=== PATIENT | male | born 1975 | race Caucasian/White ===

== ENCOUNTER 2018-08-11 13:32 | Inpatient (IN) ==
[2018-08-11] MEDS ORDERED: ONDANSETRON INJ 2 MG/ML 2 ML VIAL IV STA ×2 (13:49→15:35)
[2018-08-11] MEDS ORDERED: SODIUM CHLORIDE 0.9% 1000ML 1,000 ML IV SCH (14:00)
[2018-08-11 14:02] LABS: Basophils # (auto) 0.01 K/uL (0-0.2); Basophils % (auto) 0.1 %; Eosinophils # (auto) 0.01 K/uL (0-0.5); Eosinophils % (auto) 0.1 %; Hematocrit (blood only) 45.8 % (42-52); Immature Granulocytes # (auto) 0.04 K/uL (0.00-0.02); Immature Granulocytes % (auto) 0.3 %; Lymphocytes # (auto) 1.41 K/uL (1.2-3.4); Lymphocytes % (auto) 9.4 %; Mean Corpuscular Hgb Conc 34.9 g/dL (32-36); Mean Corpuscular Volume 86.6 fL (80-100); Mean Platelet Volume 9.7 fL (7.4-10.4); Monocytes # (auto) 0.87 K/uL (0.11-0.59); Monocytes % (auto) 5.8 %; Neutrophils # (auto) 12.73 K/uL (1.4-6.5); Neutrophils % (auto) 84.3 %; Platelet Count 263 K/uL (130-400); RDW Coefficient of Variation 13.3 % (11.5-14.5); RDW Standard Deviation 41.9 fL (36.4-46.3); Red Blood Count 5.29 M/uL (4.7-6.1); White Blood Count 15.07 K/uL (4.8-10.8)
[2018-08-11 14:19] LABS: Alanine Aminotransferase 285 U/L (12-78); Aspartate Aminotransferase 276 U/L (15-37); BUN Creatinine Ratio 8.7 (10-20); Blood Urea Nitrogen 7 mg/dl (7-18); Calcium 9.6 mg/dl (8.5-10.1); Carbon Dioxide 22 mmol/L (21-32); Chloride 108 mmol/L (98-107); Creatinine Clr Calc Pharmacy 108.7 ml/min; Est GFR (African American) 123.2; Est GFR (Non-African American) 106.3; Glucose 175 mg/dl (70-99); INR 1.2 (0.9-1.1); Magnesium 2.2 mg/dl (1.8-2.4); Potassium 3.6 mmol/L (3.5-5.1); Prothrombin Time 12.1 Seconds (9.0-12.0); Sodium 136 mmol/L (136-145)
[2018-08-11 14:24] LABS: Albumin Globulin Ratio 1.2 (0.9-2); Alkaline Phosphatase 66 U/L (45-117); Bilirubin,Total 1.1 mg/dl (0.2-1); Creatine Kinase 92 U/L (39-308); Globulin 3.4 gm/dl (2.5-4.0); Total Protein 7.4 gm/dl (6.4-8.2); Troponin I < 0.015 ng/ml (0-0.045)
--- NOTE | 2018-08-11 14:26 | XRay Report ---
XR chest 1V portable CLINICAL HISTORY: OD dyspnea COMPARISON STUDY: 05/31/2015 FINDINGS: The bones soft tissues and hemidiaphragms are normal. The cardiomediastinal silhouette is n ormal. The lungs are clear. The pulmonary vasculature is normal. IMPRESSION: Negative chest. The above report was generated using voice recognition software. It may contain grammatical, syntax or spelling errors. Electronically signed by: Johnathan Earl M.D. 08/11/2018 2:25 PM
[2018-08-11 14:32] LABS: Acetaminophen 27 ug/ml (10-30); Salicylate < 1.7 mg/dl (2.8-20)
[2018-08-11] MEDS ORDERED: AcetylCYSTEINE IV 21 HR REGIMEN (>40KG) IV STA (14:48)
[2018-08-11] MEDS ORDERED: AcetylCYSTEINE 12,300 MG in DEXTROSE 5% 200 ML IV ONE (14:48)
[2018-08-11] MEDS ORDERED: AcetylCYSTEINE 4,100 MG in DEXTROSE 5% 500 ML IV ONE (15:49)
--- NOTE | 2018-08-11 15:56 | History & Physical Report ---
Date of Service August 11, 2018 Assessment & Plan (1) Tylenol overdose: (2) Abnormal LFTs (liver function tests): This is a 43-year-old male with a PMH of schizoaffective disorder bipolar type, borderline personality disorder, hyperlipidemia and DM II and other medical problems listed below who presents after intentional overdose with Tylenol last evening at 2030. -Reportedly ingested 200 Acetaminophen 500mg tabs at 2030 last evening -Tylenol level of 27 after 17 hours, tox screen negative otherwise -Lab work performed at 1100 and again at 1347 with the following results: Tbili trending up from 0.8 to 1.1, AST from 190 to 276, ALT from 195 to 285 -Acetadote started in ED. Plan to continue on the floor, per poison control instructions -Plan to recheck CMP and PT/INR around 2030 to determine if additional Acetadote is to be given -Monitor on telemetry, clears as tolerated (3) Nausea & vomiting: Zofran as needed, monitor electrolytes (4) Schizoaffective disorder, bipolar type: Checking lithium level. Kidney function intact. Okay to continue evening lithium dose if level is normal, per poison control -Holding guanfacene for now (5) Diabetes mellitus, type II: Last a1c of 6.4 earlier this month -Not on any oral medications -Monitor BSG and add SSI if indicated DVT Ppx: Teds Code status: FULL PCP: RADHA Fowler Dispo: Admit to telemetry. Discharge planning for return to [facility] when medically appropriate. Patient seen in collaboration with Dr. Hoover. Please see addendum. History of Present Illness Chief Complaint: Intentional overdose Primary Care Provider: RADHA Shingletownsilvano This is a 43-year-old male with a PMH of schizoaffective disorder bipolar type, borderline personality disorder, hyperlipidemia and DM II and other medical problems listed below who presents after intentional overdose with Tylenol last evening at 2030. Patient reportedly took 2 bottles of Tylenol (approximately 200 pills), mixed them with water and ingested them around 2030 last evening. States that it was a suicide attempt. Has history of suicide attempt in the past. Began to have hallucinations and felt dizzy last night, with nausea and repeated bouts of bilious emesis. Labs were reportedly performed at [facility] this morning and poison control was called, who recommended sending the patient to [facility] ED for further evaluation and treatment. Patient is endorsing nausea and has vomited once since her also with acid reflux and belching. Patient denies any fever or chills. No lightheadedness or headache. Denies chest pain, shortness of breath, abdominal pain, dysuria, diarrhea or constipation. No confusion per patient, but guards at bedside state that patient is altered at baseline due to significant mental health history. Called [facility] to clarify medication reconciliation, and patient is currently just on 3 meds: Boronda 600mg BID, Guanfacine 2mg daily and Invega Sustenna 234 Q4 weeks (last taken on 08/09/18). Presented to ED with hypertension of 159/100. Mild leukocytosis of 15 K, T bili initially 0.8 trending up to 1.1 on repeat lab work at 1345. AST elevated 276, ALT at 285. Patient was started on acetylcysteine protocol and also received Zofran and 1 L normal saline. Allergies Allergy/AdvReac Type Severity Reaction Status Date / Time No Known Allergies Allergy Unverified 08/11/18 15:57 Home Medications Home Medications Medication Instructions Recorded Confirmed Type guanfacine 2 mg PO HS 08/11/18 08/11/18 History lithium carbonate 600 mg PO BID 08/11/18 08/11/18 History paliperidone palmitate [Invega 234 mg IM Q4WK 08/11/18 08/11/18 History Sustenna] Past Med/Surg History Medical History Diabetes mellitus, type II (Chronic) Schizoaffective disorder, bipolar type (Chronic) Hyperlipidemia (Chronic) Surgical History No pertinent past surgical history (Chronic) Family History Other Family history unknown Social History Preferred Language: Syriac Beliefs That Will Affect Care: None marital status: Current Living Situation: Other Current Living Situation Comment: inmate current occupation: Prisoner Feels Safe at Home: Yes Smoking Status: Former smoker Hx Alcohol Use: No Hx Substance Use: Yes Last Used Substance: Unknown Review of Systems Review of Systems: At least ten systems reviewed and negative except as noted in the HPI. Physical Exam Physical Exam: General Appearance: WD/WN, no apparent distress, flattened affect, bilious emesis in bag beside patient Head: normocephalic, atraumatic Eyes: normal inspection, PERRL, EOMI ENT: hearing grossly normal, pharynx normal (moist mucous membranes) Neck: supple, no JVD, no adenopathy Respiratory/Chest: lungs clear to auscultation. No wheezes, rales or rhonci. No respiratory distress or accessory muscle use Cardiovascular: regular rate, rhythm, no murmur, normal peripheral pulses Abdomen/GI: normal bowel sounds, soft, non-tender to palpation Extremities/Musculoskelatal: normal inspection, no calf tenderness, normal capillary refill, no pedal edema Neurologic/Psych: alert, depressed mood/ flat affect, oriented x 3 Skin: normal color, warm/dry Results & Data Vital Signs (Past 12 Hours) Vital Signs Temp Pulse Pulse Resp BP BP Pulse Ox 08/11/18 15:21 86 16 163/99 H 99 08/11/18 13:51 98 08/11/18 13:45 37.1 C 78 16 156/100 H 97 Laboratory Results Short CBC 08/11/18 Range/Units 13:47 WBC 15.07 H (4.8-10.8) K/uL Hgb 16.0 (14.0-18.0) g/dL Hct 45.8 (42-52) % Plt Count 263 (130-400) K/uL BMP 08/11/18 13:47 Sodium 136 Potassium 3.6 Chloride 108 H Carbon Dioxide 22 BUN 7 Creatinine 0.83 Glucose 175 H Calcium 9.6 Cardiac Enzymes 08/11/18 Range/Units 13:47 Total Creatine Kinase 92 (39-308) U/L Troponin I < 0.015 (0-0.045) ng/ml Liver Function 08/11/18 Range/Units 13:47 Total Bilirubin 1.1 H (0.2-1) mg/dl AST 276 H (15-37) U/L ALT 285 H (12-78) U/L Alkaline Phosphatase 66 (45-117) U/L Albumin 4.0 (3.4-5.0) gm/dl Diagnostic Findings CXR: IMPRESSION: Negative chest. ECG Rhythm: normal sinus Findings: + nonspecific-ST abn Supervising Physician Co-Signing Physician Notes Attending addendum The patient was seen and examined in telemetry unit This is a 43-year-old male with a PMH of schizoaffective disorder bipolar type, borderline personality disorder, hyperlipidemia and DM II and other medical problems listed below with previous history of suicidal attempt presents to the ER after intentional overdose with Tylenol last evening at 2030. Complains to abdominal pain with nausea and vomiting during my examination Denies any other symptoms On examination Moderate distress at rest due to abdominal pain and nausea Hemodynamically stable Chest-clear to auscultate bilaterally Heart-S1-S2 regular, no murmur appreciated Abdomen-soft, mildly tender in the epigastrium, bowel sounds present Extremities-negative for any edema DATA ABSTRACTOR-alert, awake and oriented x3. No focal neuro deficit appreciated Admission labs and imaging studies noted Has Tylenol overdose and the case was discussed with poison center Has been getting N-acetylcysteine with monitoring liver function test Agree with assessment and plan as outlined above by MARIELA Ferreira Dr (1) Tylenol overdose Encounter type: initial encounter Injury intent: intentional self-harm Qualified Code(s): T39.1X2A - Poisoning by 4-Aminophenol derivatives, intentional self-harm, initial encounter (2) Nausea & vomiting Vomiting Intractability: unspecified Vomiting type: unspecified Qualified Code(s): R11.2 - Nausea with vomiting, unspecified
--- NOTE | 2018-08-11 16:09 | Emergency Department Note ---
Entered by Puja Carballo acting as a scribe for History of Present Illness General Chief complaint: Overdose (Intentional) Source: patient History of Present Illness Onset (ago): hour(s) (17.5) Location: abdomen Pain Consistency: + other (episode) Maximum Pain Intensity: 0 Quality: + other (overdose) Associated symptoms: + loss of appetite and + nausea/vomiting The patient is a 43 year old male who presents to the ED with complaints of an episode of an overdose occurring 17.5 hours ago. The patient states that he took two whole bottles of extra strength, 500 mg, Tylenol last night. He states that he crushed the pulls up in water and drank them. He states that afterwards he did vomit and has continued to do so since then. He notes that he hasnt been able to eat because of it. The patient states that this morning he got up and was unable to get out of bed. He states that he felt like he was going to , but hadnt yet. He notes that he didnt take his morning medications. He reports that they did labs at the [facility] that found that his liver function was off. The patient complains of feeling nauseous. Home Medications Home Medications Medication Instructions Recorded Confirmed Type guanfacine 2 mg PO HS 08/11/18 08/11/18 History lithium carbonate 600 mg PO BID 08/11/18 08/11/18 History paliperidone palmitate [Invega 234 mg IM Q4WK 08/11/18 08/11/18 History Sustenna] Allergies Allergy/AdvReac Type Severity Reaction Status Date / Time No Known Allergies Allergy Unverified 08/11/18 15:57 Past Med/Surg History Medical History Diabetes mellitus, type II (Chronic) Schizoaffective disorder, bipolar type (Chronic) Hyperlipidemia (Chronic) Surgical History No pertinent past surgical history (Chronic) Family History Other Family history unknown Social History Preferred Language: Faroese Beliefs That Will Affect Care: None marital status: Current Living Situation: Other Current Living Situation Comment: inmate current occupation: Prisoner Feels Safe at Home: Yes Smoking Status: Former smoker Hx Alcohol Use: No Hx Substance Use: Yes Last Used Substance: Unknown Review of Systems See HPI for pertinent positives & negatives. and A total of 10 systems reviewed and were otherwise negative Physical Exam Vital Signs Vital Signs - 24 hr 08/11/18 13:45 08/11/18 13:51 08/11/18 15:21 Temperature 37.1 C Temperature Source Oral Sepsis Recent Fever Within 48 Hours No Sepsis New/Unexplained Change in Mental Status No Sepsis Action Taken by Nursing No Action Required Pulse Rate 78 Pulse Rate [Apical] 86 Respiratory Rate 16 16 Blood Pressure 156/100 H Blood Pressure [Left Arm] 163/99 H Blood Pressure Mean 118 Blood Pressure Mean [Left Arm] 120 Pulse Oximetry 97 98 99 Oxygen Delivery Method Room Air Room Air Room Air GENERAL: Patient is awake, alert, and in no acute distress.Patient is resting comfortably and showing no signs of anxiety EYES: The conjunctivae are clear. The pupils are round and reactive. EARS, NOSE, MOUTH AND THROAT: The nose is without any evidence of any deformity. Mucous membranes are moist.Tongue is midline NECK: The neck is nontender and supple. RESPIRATORY: Normal respiratory effort is noted. There is no evidence of wheezing rhonchi or rales to auscultation. CARDIOVASCULAR: Regular rate and rhythm noted. There no murmurs rubs or gallops normal S1 normal S2 GASTROINTESTINAL: The abdomen is soft. Bowel sounds are present in all quadrants. Abdomen is nontender. MUSCULOSKELETAL/EXTREMITIES: There is no evidence of gross deformity. Full range of motion is noted in the hips and shoulders. SKIN: There is no obvious evidence of any rash. There are no petechiae, pallor or cyanosis noted. NEUROLOGIC: Patient is awake alert and oriented x3. PSYCH: Admits to overdose as a suicidal attempt. Course 1349: The patient was evaluated in room C8. A complete history and physical exam was performed. 1453: I reevaluated the patient and updated him on his test results. I discussed the treatment plan with him. He verbally agrees and understands. 1502: I discussed the patient's case with MARIELA Ferreira. She will evaluate the patient for further management. Consultations Consultation #1: I discussed the patient's case with MARIELA Ferreira. She will evaluate the patient for further management. Time: 15:02 Administered Medications Discontinued Medications Acetylcysteine (Acetadote Iv 21 Hour Regimen (>40kg)) 1 ea IV NOW STA; Protocol Stop: 08/11/18 14:49 Last Admin: 08/11/18 17:45 Dose: Not Given Documented by: [id number] Sodium Chloride (Nss 1000ml) 1,000 mls @ 999 mls/hr IV .Q1H1M RODRIGO Stop: 08/11/18 15:00 Last Infusion: 08/11/18 14:58 Dose: 0 mls/hr Documented by: [id number] Admin: 08/11/18 13:57 Dose: 999 mls/hr Documented by: [id number] Acetylcysteine 4,100 mg/ (Dextrose) 520.5 mls @ 125 mls/hr IV ONE ONE; Protocol Stop: 08/11/18 19:48 Last Admin: 08/11/18 16:53 Dose: 125 mls/hr Documented by: [id number] Acetylcysteine 12,300 mg/ (Dextrose) 261.5 mls @ 200 mls/hr IV ONE ONE; Protocol Stop: 08/11/18 15:47 Last Infusion: 08/11/18 16:35 Dose: 0 mls/hr Documented by: [id number] Admin: 08/11/18 15:12 Dose: 200 mls/hr Documented by: [id number] Ondansetron HCl (Zofran) 4 mg IV NOW STA Stop: 08/11/18 13:50 Last Admin: 08/11/18 13:57 Dose: 4 mg Documented by: [id number] Ondansetron HCl (Zofran) 4 mg IV NOW STA Stop: 08/11/18 15:36 Last Admin: 08/11/18 15:42 Dose: 4 mg Documented by: [id number] Medical Decision Making Differential Diagnosis Differential diagnosis: Etiologies such as toxicological process, infection, hypoglycemia, electrolyte abnormalities, cardiac sources, intracerebral event, neurologic process, as well as others were entertained. Medical Records Attestation: I reviewed the patient's medical records. Home Medications Current Medication List: was personally reviewed by me Laboratory Data Attestation: I reviewed the patient's lab results. Result diagrams: 08/11/18 13:47 08/11/18 13:47 Lab Results 08/11/18 08/11/18 08/11/18 Range/Units 13:47 13:47 13:47 WBC 15.07 H (4.8-10.8) K/uL RBC 5.29 (4.7-6.1) M/uL Hgb 16.0 (14.0-18.0) g/dL Hct 45.8 (42-52) % MCV 86.6 (80-100) fL MCH 30.2 (25-34) pg MCHC 34.9 (32-36) g/dL RDW Std Deviation 41.9 (36.4-46.3) fL RDW Coeff of Lisha 13.3 (11.5-14.5) % Plt Count 263 (130-400) K/uL MPV 9.7 (7.4-10.4) fL Immature Gran % (Auto) 0.3 % Neut % (Auto) 84.3 % Lymph % (Auto) 9.4 % [place] % (Auto) 5.8 % Eos % (Auto) 0.1 % Baso % (Auto) 0.1 % Immature Gran # (Auto) 0.04 H (0.00-0.02) K/uL Neut # (Auto) 12.73 H (1.4-6.5) K/uL Lymph # (Auto) 1.41 (1.2-3.4) K/uL [place] # (Auto) 0.87 H (0.11-0.59) K/uL Eos # (Auto) 0.01 (0-0.5) K/uL Baso # (Auto) 0.01 (0-0.2) K/uL PT 12.1 H (9.0-12.0) Seconds INR 1.2 H (0.9-1.1) Sodium 136 (136-145) mmol/L Potassium 3.6 (3.5-5.1) mmol/L Chloride 108 H (98-107) mmol/L Carbon Dioxide 22 (21-32) mmol/L Anion Gap 6.0 (3-11) BUN 7 (7-18) mg/dl Creatinine 0.83 (0.6-1.4) mg/dl Est Cr Clr Drug Dosing 108.7 ml/min Est GFR ( Amer) 123.2 Est GFR (Non-Af Amer) 106.3 BUN/Creatinine Ratio 8.7 L (10-20) Glucose 175 H (70-99) mg/dl Calcium 9.6 (8.5-10.1) mg/dl Magnesium 2.2 (1.8-2.4) mg/dl Total Bilirubin 1.1 H (0.2-1) mg/dl AST 276 H (15-37) U/L ALT 285 H (12-78) U/L Alkaline Phosphatase 66 (45-117) U/L Total Creatine Kinase 92 (39-308) U/L Troponin I < 0.015 (0-0.045) ng/ml Total Protein 7.4 (6.4-8.2) gm/dl Albumin 4.0 (3.4-5.0) gm/dl Globulin 3.4 (2.5-4.0) gm/dl Albumin/Globulin Ratio 1.2 (0.9-2) Lipase 89 (73-393) U/L Urine Color Urine Appearance (Clear) Urine pH (4.5-7.5) Ur Specific [place] (1.000-1.030) Urine Protein (Negative) Urine Glucose (UA) (Negative) Urine Ketones (Negative) Urine Blood (Negative) Urine Nitrite (Negative) Urine Bilirubin (Negative) Urine Urobilinogen (Negative) Ur Leukocyte Esterase (Negative) Urine WBC (Auto) (0-5) /hpf Urine RBC (Auto) (0-4) /hpf U Hyaline Cast (Auto) (0-5) /lpf U Epithel Cells (Auto) (0-5) /lpf Urine Bacteria (Auto) (Negative) Salicylates (2.8-20) mg/dl Urine Opiates Screen (Neg) Ur Methadone, Qual (Neg) Acetaminophen (10-30) ug/ml Urine Barbiturates (Neg) Ur Phencyclidine (PCP) (Neg) U Amphetamin/Meth Scrn (Neg) MDMA (Ecstasy) Screen (Neg) U Benzodiazepines Scrn (Neg) Ur Cocaine Metabolite (Neg) U Marijuana (THC) Screen (Neg) Ethyl Alcohol mg/dL (0-3) mg/dl 08/11/18 08/11/18 08/11/18 Range/Units 13:47 14:07 15:25 WBC (4.8-10.8) K/uL RBC (4.7-6.1) M/uL Hgb (14.0-18.0) g/dL Hct (42-52) % MCV (80-100) fL MCH (25-34) pg MCHC (32-36) g/dL RDW Std Deviation (36.4-46.3) fL RDW Coeff of Lisha (11.5-14.5) % Plt Count (130-400) K/uL MPV (7.4-10.4) fL Immature Gran % (Auto) % Neut % (Auto) % Lymph % (Auto) % [place] % (Auto) % Eos % (Auto) % Baso % (Auto) % Immature Gran # (Auto) (0.00-0.02) K/uL Neut # (Auto) (1.4-6.5) K/uL Lymph # (Auto) (1.2-3.4) K/uL [place] # (Auto) (0.11-0.59) K/uL Eos # (Auto) (0-0.5) K/uL Baso # (Auto) (0-0.2) K/uL PT (9.0-12.0) Seconds INR (0.9-1.1) Sodium (136-145) mmol/L Potassium (3.5-5.1) mmol/L Chloride (98-107) mmol/L Carbon Dioxide (21-32) mmol/L Anion Gap (3-11) BUN (7-18) mg/dl Creatinine (0.6-1.4) mg/dl Est Cr Clr Drug Dosing ml/min Est GFR ( Amer) Est GFR (Non-Af Amer) BUN/Creatinine Ratio (10-20) Glucose (70-99) mg/dl Calcium (8.5-10.1) mg/dl Magnesium (1.8-2.4) mg/dl Total Bilirubin (0.2-1) mg/dl AST (15-37) U/L ALT (12-78) U/L Alkaline Phosphatase (45-117) U/L Total Creatine Kinase (39-308) U/L Troponin I (0-0.045) ng/ml Total Protein (6.4-8.2) gm/dl Albumin (3.4-5.0) gm/dl Globulin (2.5-4.0) gm/dl Albumin/Globulin Ratio (0.9-2) Lipase (73-393) U/L Urine Color Urine Appearance (Clear) Urine pH (4.5-7.5) Ur Specific [place] (1.000-1.030) Urine Protein (Negative) Urine Glucose (UA) (Negative) Urine Ketones (Negative) Urine Blood (Negative) Urine Nitrite (Negative) Urine Bilirubin (Negative) Urine Urobilinogen (Negative) Ur Leukocyte Esterase (Negative) Urine WBC (Auto) (0-5) /hpf Urine RBC (Auto) (0-4) /hpf U Hyaline Cast (Auto) (0-5) /lpf U Epithel Cells (Auto) (0-5) /lpf Urine Bacteria (Auto) (Negative) Salicylates < 1.7 L (2.8-20) mg/dl Urine Opiates Screen Neg (Neg) Ur Methadone, Qual Neg (Neg) Acetaminophen 27 (10-30) ug/ml Urine Barbiturates Neg (Neg) Ur Phencyclidine (PCP) Neg (Neg) U Amphetamin/Meth Scrn Neg (Neg) MDMA (Ecstasy) Screen Neg (Neg) U Benzodiazepines Scrn Neg (Neg) Ur Cocaine Metabolite Neg (Neg) U Marijuana (THC) Screen Neg (Neg) Ethyl Alcohol mg/dL < 3.0 (0-3) mg/dl 08/11/18 Range/Units 15:25 WBC (4.8-10.8) K/uL RBC (4.7-6.1) M/uL Hgb (14.0-18.0) g/dL Hct (42-52) % MCV (80-100) fL MCH (25-34) pg MCHC (32-36) g/dL RDW Std Deviation (36.4-46.3) fL RDW Coeff of Lisha (11.5-14.5) % Plt Count (130-400) K/uL MPV (7.4-10.4) fL Immature Gran % (Auto) % Neut % (Auto) % Lymph % (Auto) % [place] % (Auto) % Eos % (Auto) % Baso % (Auto) % Immature Gran # (Auto) (0.00-0.02) K/uL Neut # (Auto) (1.4-6.5) K/uL Lymph # (Auto) (1.2-3.4) K/uL [place] # (Auto) (0.11-0.59) K/uL Eos # (Auto) (0-0.5) K/uL Baso # (Auto) (0-0.2) K/uL PT (9.0-12.0) Seconds INR (0.9-1.1) Sodium (136-145) mmol/L Potassium (3.5-5.1) mmol/L Chloride (98-107) mmol/L Carbon Dioxide (21-32) mmol/L Anion Gap (3-11) BUN (7-18) mg/dl Creatinine (0.6-1.4) mg/dl Est Cr Clr Drug Dosing ml/min Est GFR ( Amer) Est GFR (Non-Af Amer) BUN/Creatinine Ratio (10-20) Glucose (70-99) mg/dl Calcium (8.5-10.1) mg/dl Magnesium (1.8-2.4) mg/dl Total Bilirubin (0.2-1) mg/dl AST (15-37) U/L ALT (12-78) U/L Alkaline Phosphatase (45-117) U/L Total Creatine Kinase (39-308) U/L Troponin I (0-0.045) ng/ml Total Protein (6.4-8.2) gm/dl Albumin (3.4-5.0) gm/dl Globulin (2.5-4.0) gm/dl Albumin/Globulin Ratio (0.9-2) Lipase (73-393) U/L Urine Color [place] Urine Appearance Clear (Clear) Urine pH 5.0 (4.5-7.5) Ur Specific [place] > 1.045 H (1.000-1.030) Urine Protein Negative (Negative) Urine Glucose (UA) 1+ H (Negative) Urine Ketones Negative (Negative) Urine Blood Negative (Negative) Urine Nitrite Positive A (Negative) Urine Bilirubin Negative (Negative) Urine Urobilinogen Negative (Negative) Ur Leukocyte Esterase Negative (Negative) Urine WBC (Auto) 1-5 (0-5) /hpf Urine RBC (Auto) 0-4 (0-4) /hpf U Hyaline Cast (Auto) 1-5 (0-5) /lpf U Epithel Cells (Auto) 5-10 H (0-5) /lpf Urine Bacteria (Auto) Negative (Negative) Salicylates (2.8-20) mg/dl Urine Opiates Screen (Neg) Ur Methadone, Qual (Neg) Acetaminophen (10-30) ug/ml Urine Barbiturates (Neg) Ur Phencyclidine (PCP) (Neg) U Amphetamin/Meth Scrn (Neg) MDMA (Ecstasy) Screen (Neg) U Benzodiazepines Scrn (Neg) Ur Cocaine Metabolite (Neg) U Marijuana (THC) Screen (Neg) Ethyl Alcohol mg/dL (0-3) mg/dl Imaging Data Radiologist's Impression: Radiology results as stated below per my review and the radiologist's interpretation: XR chest 1V portable CLINICAL HISTORY: OD dyspnea COMPARISON STUDY: 05/31/2015 FINDINGS: The bones soft tissues and hemidiaphragms are normal. The cardiomediastinal silhouette is normal. The lungs are clear. The pulmonary vasculature is normal. IMPRESSION: Negative chest. The above report was generated using voice recognition software. It may contain grammatical, syntax or spelling errors. Electronically signed by: Johnathan Earl M.D. 08/11/2018 2:25 PM ECG Data Attestation: I personally reviewed and interpreted this ECG as follows: Indication: toxicologic Rate (beats per minute): 73 Rhythm: normal sinus Findings: no PAC, no PVC, no ST depression, no ST elevation and no ectopy Blood Pressure Blood Pressure Findings: Elevated blood pressure Blood Pressure Disposition: further management by hospitalist MDM Narrative The patient is a 43-year-old male who presented to the emergency department for an evaluation after having an overdose. The patient was experiencing nausea and vomiting. He admitted that he took an overdose of Tylenol last evening at approximately 8:30 PM as a suicidal gesture. I discussed the patient's laboratory and radiographic studies with him. He was found to have elevated liver function studies at outpatient laboratory results. For this reason he was sent to the emergency department. The poison control was consulted. The patient was started on N-acetylcysteine in the emergency department. He was treated with IV fluids and IV antiemetics. I discussed the patient's condition with the on-call [facility] hospitalist group. They have agreed to evaluate the patient in the emergency department for further management and disposition. Impression & Plan Tylenol overdose, Nausea & vomiting, Abnormal LFTs (liver function tests) Discharge Plan Visit Data *Final* Discharge Date/Time: 08/11/18 17:12 Chief Complaint: Overdose (Intentional) ED Provider: Rusty Payan Discharge Problem: Tylenol overdose, Nausea & vomiting, Abnormal LFTs (liver function tests) Patient Disposition: Admitted As Inpatient Discharge Instructions Interventions: ED Discharge Assessment Last Done: 08/11/18 17:12 Discharge Problem: Tylenol overdose Qualifiers: Encounter type: initial encounter Injury intent: intentional self-harm Qualified Code(s): T39.1X2A - Poisoning by 4-Aminophenol derivatives, intentional self-harm, initial encounter Nausea & vomiting Qualifiers: Vomiting type: unspecified Vomiting Intractability: unspecified Qualified Code(s): R11.2 - Nausea with vomiting, unspecified The scribe's documentation has been prepared under my direction and personally reviewed by me in its entirety. I confirm that the note above accurately refl ects all work, treatment, procedures, and medical decision making performed by me.
[2018-08-11 16:15] LABS: Appearance Urine Clear (Clear); Bacteria Urine Automated Negative (Negative); Blood Urine Negative (Negative); Color Urine Orange; Glucose Urine UA 1+ (Negative); Ketones Urine Negative (Negative); Leukocyte Esterase Urine Negative (Negative); Nitrite Urine Positive (Negative); Protein Urine Negative (Negative); RBC Urine Automated 0-4 /hpf (0-4); Specific Gravity Urine > 1.045 (1.000-1.030); Urobilinogen Urine Negative (Negative)
[2018-08-11 16:18] LABS: Bilirubin Urine Negative (Negative); Ictotest Urine Negative (Negative)
[2018-08-11 16:30] LABS: Amphetamines+Metham, Urine Neg (Neg); Barbiturates, Urine Neg (Neg); Benzodiazepine, Urine Neg (Neg); Cocaine, Urine Neg (Neg); MDMA (Ecstacy), Urine Neg (Neg); Methadone, Urine Neg (Neg); Opiate, Urine Neg (Neg); Phencyclidine, Urine Neg (Neg)
[2018-08-11] MEDS ORDERED: ONDANSETRON INJ 2 MG/ML 2 ML VIAL IV PRN (17:32)
[2018-08-11] MEDS ORDERED: [UNRECOGNIZED DRUG - REMARK] PRN (18:12)
[2018-08-11] MEDS ORDERED: PROMETHAZINE HCL 12.5 MG in SODIUM CHLORIDE 0.9% 50 ML IV PRN (18:49)
[2018-08-11] MEDS ORDERED: AcetylCYSTEINE 8,200 MG in DEXTROSE 5% 1,000 ML IV ONE (19:49)
[2018-08-11 20:40] LABS: INR 1.5 (0.9-1.1)
[2018-08-11 20:50] LABS: Albumin Level 3.5 gm/dl (3.4-5.0); BUN Creatinine Ratio 8.1 (10-20); Creatinine Clr Calc Pharmacy 98.1 ml/min; Est GFR (Non-African American) 100.1; Potassium 3.4 mmol/L (3.5-5.1)
[2018-08-11 20:53] LABS: Albumin Globulin Ratio 1.1 (0.9-2); Bilirubin,Total 1.1 mg/dl (0.2-1); Globulin 3.1 gm/dl (2.5-4.0); Total Protein 6.6 gm/dl (6.4-8.2)
[2018-08-11] MEDS: LITHIUM CARBONATE 300 MG TAB PO SCH (21:31)
[2018-08-11] MEDS ORDERED: LACTATED RINGER'S 1,000 ML IV ONE (21:43)
[2018-08-11] MEDS ORDERED: POTASSIUM CHLORIDE 20 MEQ TABCR PO STA (21:44)
[2018-08-12 06:56] LABS: Basophils # (auto) 0.02 K/uL (0-0.2); Basophils % (auto) 0.1 %; Eosinophils % (auto) 0.7 %; Hematocrit (blood only) 42.6 % (42-52); Hemoglobin 15.2 g/dL (14.0-18.0); Immature Granulocytes # (auto) 0.03 K/uL (0.00-0.02); Immature Granulocytes % (auto) 0.2 %; Lymphocytes # (auto) 1.43 K/uL (1.2-3.4); Lymphocytes % (auto) 10.3 %; Mean Corpuscular Hgb Conc 35.7 g/dL (32-36); Mean Corpuscular Volume 85.7 fL (80-100); Mean Platelet Volume 9.7 fL (7.4-10.4); Monocytes # (auto) 0.57 K/uL (0.11-0.59); Monocytes % (auto) 4.1 %; Neutrophils # (auto) 11.67 K/uL (1.4-6.5); Neutrophils % (auto) 84.6 %; Platelet Count 264 K/uL (130-400); RDW Coefficient of Variation 13.5 % (11.5-14.5); RDW Standard Deviation 42.4 fL (36.4-46.3); Red Blood Count 4.97 M/uL (4.7-6.1); White Blood Count 13.82 K/uL (4.8-10.8)
[2018-08-12 07:09] LABS: INR 1.5 (0.9-1.1); Prothrombin Time 15.1 Seconds (9.0-12.0)
[2018-08-12 07:10] LABS: INR 1.5 (0.9-1.1); Prothrombin Time 15.3 Seconds (9.0-12.0)
[2018-08-12 07:30] LABS: Albumin Level 3.2 gm/dl (3.4-5.0); BUN Creatinine Ratio 7.4 (10-20); Calcium 8.6 mg/dl (8.5-10.1); Creatinine Clr Calc Pharmacy 155.6 ml/min; Est GFR (African American) 142.7; Est GFR (Non-African American) 123.1; Potassium 3.2 mmol/L (3.5-5.1)
[2018-08-12 07:36] LABS: Bilirubin,Total 1.1 mg/dl (0.2-1); Globulin 3.1 gm/dl (2.5-4.0); Total Protein 6.3 gm/dl (6.4-8.2)
[2018-08-12 07:41] LABS: Albumin Level 3.3 gm/dl (3.4-5.0); Bilirubin Direct 0.3 mg/dl (0-0.2); Bilirubin,Total 1.2 mg/dl (0.2-1); Total Protein 6.2 gm/dl (6.4-8.2)
[2018-08-12] MEDS: LITHIUM CARBONATE 300 MG TAB PO SCH ×2 (08:27→20:32)
[2018-08-12] MEDS ORDERED: POTASSIUM CHLORIDE 20 MEQ TABCR PO ONE (09:30)
[2018-08-12] MEDS ORDERED: AcetylCYSTEINE 8,200 MG in DEXTROSE 5% 1,000 ML IV SCH (11:30)
--- NOTE | 2018-08-12 12:12 | Hospitalist Progress Note ---
Date of Service August 12, 2018 Assessment & Plan (1) Intentional acetaminophen overdose: (2) Suicidal overdose: [place] [facility] [place] [facility] after pt intentionally ingested 200 tabs of acetaminophen 500mg Pt said that he wanted to kill himself Tylenol 27 wnl Continue suicide precaution (already had 2 [place] [facility] guards at bedside) Consider Psych consult Case discussed with poison control that recommended to continue another maintenance dose of N-Acetylcysteine for 16hrs with the same dose once the previous bag finishes. Continue monitor closely (3) Abnormal LFTs (liver function tests): Ingested 200 tabs of tylenol Liver enzymes on admission AST 190 and ALT 195 Liver enzymes has been trending high AST 190->276->442->938, then ALT 195->285-> 488->1139 PT 15.3 and INR 1.5 Received loading dose of N-Acetylcysteine, then 4hr maintenance dose, then 16 hr maintenance dose Case discussed with poison control and recommended to give an additional 16hr maintenance N-acetylcysteine Will check LFT, PT/INR after 12hrs once the 16hrs maintenance dose starts . Continue monitor closely (4) Nausea & vomiting: Zofran as needed, monitor electrolytes Stable (5) Schizoaffective disorder, bipolar type: [place] level low Continue holding guanfacene for now (6) Diabetes mellitus, type II: Last a1c of 6.4 earlier this month Not on any oral medications Continue monitor BS DVT Ppx: Teds Code status: FULL PCP: RADHA [facility] Dispo: Continue monitor in tele Subjective Pt was seen and examined Lying in bed with no distress with 2 securities guard at bedside Pt said that he feels fine He said that he feels fine, but very hungry All he is worried about is when he can have some food to eat Denies any chest pain, palpitation, dizziness, nausea, vomiting and abdominal pain Physical Exam Physical Exam: General- No acute distress Head- atraumatic Eyes- PERRL, EOMI, ENT- oropharynx clear Neck- supple, no JVD Lungs- clear to auscultation Heart- regular rhythm; no murmur Abdomen- normal bowel sounds, soft, nontender Extremities- no calf tenderness Neuro- alert, oriented x 3; PERRL, EOMI; no facial palsy; no dysarthria Skin- warm & dry Results & Data Vital Signs (Past 12 Hours) Vital Signs Temp Pulse Resp BP Pulse Ox 08/12/18 11:03 37.1 C 90 18 107/62 97 08/12/18 07:05 36.9 C 84 18 115/78 98 08/12/18 03:16 36.9 C 86 18 109/66 96 (1) Nausea & vomiting Vomiting Intractability: unspecified Vomiting type: unspecified Qualified Code(s): R11.2 - Nausea with vomiting, unspecified
[2018-08-13 02:57] LABS: INR 1.7 (0.9-1.1); Prothrombin Time 17.2 Seconds (9.0-12.0)
[2018-08-13 03:05] LABS: BUN Creatinine Ratio 6.4 (10-20); Calcium 8.5 mg/dl (8.5-10.1); Creatinine Clr Calc Pharmacy 145.6 ml/min; Est GFR (African American) 138.9; Est GFR (Non-African American) 119.8; Potassium 3.5 mmol/L (3.5-5.1)
[2018-08-13 03:30] LABS: Bilirubin,Total 0.9 mg/dl (0.2-1)
[2018-08-13] MEDS ORDERED: LACTATED RINGER'S 1,000 ML IV ONE ×2 (04:14→21:26)
[2018-08-13] MEDS ORDERED: AcetylCYSTEINE 8,200 MG in DEXTROSE 5% 1,000 ML IV SCH (06:00)
[2018-08-13] MEDS: LITHIUM CARBONATE 300 MG TAB PO SCH ×2 (07:45→21:13)
--- NOTE | 2018-08-13 11:13 | Psychiatric Consultation ---
Date of Consultation August 13, 2018 Impression / Recommendations Impression The patient is a 43yo white male with h/o schizoaffective disorder bipolar type and anxiety and other disruptive behavioral disorder by history (r/o ADHD, CD) from [facility] (10+ years served, >9 until elligible for parole) who shares that he is depressed, and anxious and "tired of living in custodial" who is s/p suicide attempt that was premeditated for weeks. He waited >17hours to relay any distress and when he had protracted nausea and vomitting he disclosed the toxic ingestion prompting medical admission. Prognosis of his liver remains uncertain at this time per medical service. (1) Suicidal overdose: 1. Safety - seriously high acute and chronic risk agree with one to one at the bedside , guards can fulfill here, and when return to custodial on suicide watch - will attempt to treat his current depression and anxiety to mitigate risk - Future consideration: overtime when back at custodial considering more aggressive treatment of attention, eg. strattera to help him then engage in activities of distraction or even begin to work on a personal goal may be largely helpful toward finding meaning and purpose despite being in custodial, or if not already tried cautious trial of wellbutrin (2) Schizoaffective disorder, bipolar type: - INvega sustenna administered on or around 08/10/18, continue in 4 weeks - continue lithium at usual dose - FOr now will remain cautious and use buspar to target anxiety until we get further collateral history - will attempt to get collateral history from the custodial to look at prior trials and reactions as well (contemplating very cautious use of celexa low dose 10mg (max in liver failure is 20mg), risk is activation to elevated/mixed state, but if this lowers his anxious distress, rumination and improves his mood it may be worth considering this or other SSRI. I do believe invega would stablize better than latuda) (I would be interested in knowing if he has been on wellbutrin in the past alongside an SSRI to target mood and attention, but risk is anxiety and mood elevation) - stop guanfacine as he has not had benefit and questions if it has worsened his mood - if patient makes it through this experience targeting activities he can do in custodial to find broader meaning and purpose, e.g. a cause to champion, even if it is letter writing. I do not know what this would be, but treating his concentration/restlessness would be very helpful in then helping him engage in tasks that require sustained mental effort Risk Factors Assessment Male: Yes : Yes Do You Have Access To A Gun?: No Health Problems: Yes Mental Health Diagnoses: Yes Substance Use Disorders: No Previous Attempt: Yes Previous Attempt; Highly Lethal: Yes Previous Attempt; Planned: Yes Previous Attempt; Didn't Tell Anyone: Yes Previous Psychiatric Hospitalization: Yes (on mental health unit at custodial) Hopelessness: Yes Protective Factors Assessment Mormonism Beliefs: No : No Responsible for Young Children: No Employed: No Stable Relationships: No Supportive Family: Yes (mother in [place] talks daily) Good Rapport with Provider: No CPT Code 89123 Psych History Chief Complaint "I just don't want to live in half-way anymore". History of Present Illness This is a 43-year-old male with a PMH of schizoaffective disorder bipolar type, borderline personality disorder, hyperlipidemia and DM II who presented to the [facility] ER on 08/11/18 approximately 17hours after an intentional overdose with Tylenol the evening evening of 08/10/18 at 2030. Patient reports to this provider that he stockpiled acetominophen over 3 weeks [facility]. He reportedly took 2 bottles of Tylenol (approximately 200 pills), mixed them with water and ingested them. He stated it was an intentional overdose with intention to . He reports he has been feeling depressed for several months. Specifically he reports today that he has been in custodial for over a decade and has nearly another decade before he can go up for parole, "and I will be denied anyway....they won't give it to me....and I am locked in there and there is so much going on in the world and I can't do anything to even help." He reports low mood, poor interest, poor appetite, feeling hopeless, helpless and worthless. He notes he has had the suicidal ideations for many weeks. He reports he has longstanding poor concentration (even as far back as elementary school) "they just left me alone in school because they did not know what to do with me...I passed, never did homework, but did take the tests" Noted he completed HS, "I never would have made it in college." He reports in the day he feels too restless and poor focus to watch TV or read more than a few pages. He mainly passes his time by listening to music. He states he was recently placed on guanfacine "maybe in April" and asks if that can worsen depression. He wa s noted to say to the nursing staff yesterday, "I just don't want to live." Today when asked about how he feels that he is still alive he states, "well if I live I am not going to try to kill myself again because I can never seem to get it right, and God must not want me ." He is presently uncertain of the prognosis for his liver. He does not say he actively wishes to and engages in discussion about options for treatment saying "well if I am going to be alive we should try something." He reports h/o "schizophrenia the positive type and bipolar the second type." He describes a history of thought confusion "but not the hallucinations" denying AVH, or delusions. He reports he has been paranoid in the past, but denies IOR, TI/TB in the past. When specifically asked he beleives that he has been unable to function because of psychotic symptoms such as limited self care "I stop showering and eating and taking care of myself and then can't be around others ." He is uncertain if he has had catatonia even when asked about symptoms in layman's terms. He states that he receives Invega Sustenna injections and just had it 1-2 days prior to medical admission, "It helps my sym ptoms" he deniesf eeling restless or stiff, denies side effects. He also feels his lithium is helpful and again denies side effects He does report of history of "crazy manias....dancing on a table naked, talking, feeling great, yes, on top of the world, more energy, poor sleep" with indiscretions sexually, and socially getting into altercations at times. He notes "then you crash hard and wake up on the pavement" with severe post-manic depressive phases. He reports last elevation was a few years ago when he was tried on latuda, he was also on celexa and so he was taken off those meds. At s ometime he was on abilify and states "that gave me diabetes." He reports he is an anxious person, "always have been....I worry." He reports feeling keyed up and on edge and lately ruminating anxiously over being in custodial, and the state of the world. He states he does not like the klonopin "I feel worse on it....but maybe I should ask to be put back on it." he notes he has been on many antidepressants before but "they are all worried I'll get manic" He notes he felt the prior use of celexa helped his anxiety. He has been on other SSRIs in the past but does not have a good recollection about them. The medical team called [facility] to clarify medication reconciliation, and patient is currently just on 3 meds: [place] 600mg BID, Guanfacine 2mg daily and Invega Sustenna 234 Q4 weeks (last taken on 08/09/18). Patient's liver enzymes continue to rise despite ongoing NAC and supportive care. IM team is consulting with poison control for ongoing assistance/guidance in treatment. Past Psychiatric History Previous Psych History: seen in the custodial for schizaffective disorder Bipolar type prior medications include but ar note limited to celexa, guanfacine, lithium invega, abilify, latuda (ineffective manic) this admission is his 3rd suicidal attempt , first in 5th grade, second 2016 attempted to hang himself in custodial Previously expiramented with drugs in his late teens, "got in trouble with the law at 16yo for that and stopped" Do You Have Access To A Gun?: No Allergies Allergy/AdvReac Type Severity Reaction Status Date / Time No Known Allergies Allergy Unverified 08/11/18 15:57 Home Medications Home Medications Medication Instructions Recorded Confirmed Type guanfacine 2 mg PO HS 08/11/18 08/11/18 History lithium carbonate 600 mg PO BID 08/11/18 08/11/18 History paliperidone palmitate [Invega 234 mg IM Q4WK 08/11/18 08/11/18 History Sustenna] Family History unknown Personal History Living Arrangements Comments: Retirement, [facility] on the mental health unit, has been in >10 years, not eligible for parole for nearly 9 more years Born In: [facility] Highest Grade Completed: High School Graduate Employment Status: Other (in custodial, history of "sales") Marital Status: Single Beliefs That Will Affect Care: None (has his own beleifs about spirituality that incorporate many ideologies ) History of Legal Problems: yes, not explicitly discussed Patient History Medical History Diabetes mellitus, type II (Chronic) Schizoaffective disorder, bipolar type (Chronic) Hyperlipidemia (Chronic) Surgical History No pertinent past surgical history (Chronic) Family History Other Family history unknown Social History Preferred Language: Mongolian Communication Ability: Effective Beliefs That Will Affect Care: None marital status: Current Living Situation: Other Current Living Situation Comment: inmate current occupation: Prisoner Feels Safe at Home: Yes Smoking Status: Former smoker Hx Alcohol Use: No Hx Substance Use: Yes Last Used Substance: Unknown Physical Exam Psychiatric: Orientation: alert, oriented x 3 and cooperative Apperance: appeared stated age (laying in hospital gown handcuffed to the bed, guards at the bedside) Eye Contact: good eye contact Motor Behavior: no abnormal motor movements (gait not appreciated); no psychomotor agitation, n EPS and n akathisia Speech: normal rate/rhythm/volume of speech Affect: + blunted af fect Mood: + depressed mood and + anxious mood Thought Process: goal directed thought process and clear/coherent thought process Thought Content: reality based without delusions and + hopelessness; not paranoid, no delusions, no ideas of reference, no thought insertion and no thought broadcasting Suicidal Thoughts: + reports suicidal thoughts (has SI wtih premeditated i ntention and plan for this attempt, ambivalent no) Homicidal Thoughts: denies homicidal thoughts and denies homicidal plan Hallucinations: no auditory hallucinations and no visual hallucinations Cognition: recent memory grossly intact Estimated Intelligence: average estimated intelligence Insight: + impaired insight Judgement: + impaired judgement Vital Signs (Past 24 Hours): Last Vital Signs Temp 37.5 C 08/13/18 07:47 Pulse 96 H 08/13/18 07:47 Resp 30 H 08/13/18 07:47 BP 119/77 08/13/18 07:47 Pulse Ox 93 08/13/18 03:50 Results & Data Medications Administered Promethazine HCl 12.5 mg/ (Sodium Chloride) 50.5 mls @ 202 mls/hr IV Q6H PRN PRN Reason: Nausea And Vomiting Stop: 09/10/18 18:48 Last Infusion: 08/11/18 21:34 Dose: 0 mls/hr Documented by: [id number] Admin: 08/11/18 20:45 Dose: 202 mls/hr Documented by: [id number] Lactated Ringer's (Lr) 1,000 mls @ 80 mls/hr IV .[id number] ONE Stop: 08/13/18 16:43 Last Admin: 08/13/18 05:34 Dose: 80 mls/hr Documented by: [id number] Acetylcysteine 8,200 mg/ (Dextrose) 1,041 mls @ 62.5 mls/hr IV TODAY@0600 [facility]; Protocol Stop: 08/13/18 22:40 Last Admin: 08/13/18 07:17 Dose: 62.5 mls/hr Documented by: [id number] [place] Carbonate ([place] Carbonate) 600 mg PO BID RODRIGO Stop: 09/10/18 20:59 Last Admin: 08/13/18 07:45 Dose: 600 mg Documented by: [id number] Admin: 08/12/18 20:32 Dose: 600 mg Documented by: [id number] Admin: 08/12/18 08:27 Dose: 600 mg Documented by: [id number] Admin: 08/11/18 21:31 Dose: 600 mg Documented by: [id number]
--- NOTE | 2018-08-13 14:47 | Hospitalist Progress Note ---
Date of Service August 13, 2018 Assessment & Plan (1) Intentional acetaminophen overdose: (2) Suicidal overdose: Was sent from [facility] after pt intentionally ingested 200 tabs of acetaminophen 500mg Pt said that he wanted to kill himself Tylenol 27 wnl on admssion Continue suicide precaution (already had 2 half-way guards at bedside) Consider Psych on board recommended to continue [place] and recommended to d/c guanfacine Pt is getting a 3rd bag of N-acetylcysteine that was starting this morning since AST and ALT continue to elevate Case discussed with poison control recommended if next liver panel (due at 7:30PM) continue to increase to give another back of 16hr of N-acetylcysteine with the current dose Poison control said that if enzymes is dropping no need to give additional N- acetylcysteine even if the level is in thousand Continue monitor liver enzymes Continue monitor closely (3) Abnormal LFTs (liver function tests): Ingested 200 tabs of tylenol Liver enzymes on admission AST 190 and ALT 195->4148 Liver enzymes has been trending high AST 190->276->442->938, then ALT 195->285-> 488->1139->6311 PT 17.2 and INR 1.7 Received loading dose of N-Acetylcysteine, then 4hr maintenance dose, then 16 hr maintenance dose Case discussed with poison control and recommended to give an additional 16hr maintenance N-acetylcysteine Will check LFT, PT/INR after 12hrs once the 3rd bag of the N-acetylcysteine 16hrs maintenance dose starts . Continue monitor closely (4) Nausea & vomiting: Zofran as needed, monitor electrolytes Tolerated diet Resolved (5) Schizoaffective disorder, bipolar type: [place] level low Psych recommended to d/c guanfacine on discharge Continue [place] Starting on Buspar 5mg TID (6) Diabetes mellitus, type II: Last a1c of 6.4 earlier this month Not on any oral medications Continue monitor BS DVT Ppx: Teds Code status: FULL PCP: RADHA [facility] Dispo: Continue monitor in tele Subjective Pt was seen and examined Lying in bed with no distress Pt said that he feels fine He said that that he does not have any abdominal symptoms and nausea Physical Exam Physical Exam: General- No acute distress Head- atraumatic Eyes- PERRL, EOMI, ENT- oropharynx clear Neck- supple, no JVD Lungs- clear to auscultation Heart- regular rhythm; no murmur Abdomen- normal bowel sounds, soft, nontender Extremities- no calf tenderness Neuro- alert, oriented x 3; PERRL, EOMI; no facial palsy; no dysarthria Skin- warm & dry Results & Data Vital Signs (Past 12 Hours) Vital Signs Temp Pulse Resp BP Pulse Ox 08/13/18 12:10 36.9 C 97 H 28 H 152/89 H 98 08/13/18 07:47 37.5 C 96 H 30 H 119/77 08/13/18 03:50 37 C 92 H 17 103/67 93 (1) Nausea & vomiting Vomiting Intractability: unspecified Vomiting type: unspecified Qualified Code(s): R11.2 - Nausea with vomiting, unspecified
[2018-08-13 19:59] LABS: INR 1.4 (0.9-1.1)
[2018-08-13 20:11] LABS: Albumin Level 2.8 gm/dl (3.4-5.0); BUN Creatinine Ratio 6.4 (10-20); Calcium 8.4 mg/dl (8.5-10.1); Creatinine Clr Calc Pharmacy 104.9 ml/min; Est GFR (African American) 121.4; Est GFR (Non-African American) 104.7; Potassium 3.8 mmol/L (3.5-5.1)
[2018-08-13 20:32] LABS: Albumin Globulin Ratio 0.9 (0.9-2); Bilirubin,Total 1.3 mg/dl (0.2-1); Globulin 3.2 gm/dl (2.5-4.0)
[2018-08-14 08:41] LABS: Albumin Level 2.8 gm/dl (3.4-5.0); BUN Creatinine Ratio 6.4 (10-20); Calcium 8.9 mg/dl (8.5-10.1); Creatinine Clr Calc Pharmacy 127.1 ml/min; Est GFR (African American) 131.3; Est GFR (Non-African American) 113.3; Potassium 3.5 mmol/L (3.5-5.1)
[2018-08-14 08:48] LABS: Albumin Globulin Ratio 0.9 (0.9-2); Bilirubin,Total 1.6 mg/dl (0.2-1); Total Protein 5.8 gm/dl (6.4-8.2)
[2018-08-14] MEDS: LITHIUM CARBONATE 300 MG TAB PO SCH ×2 (08:48→20:45)
--- NOTE | 2018-08-14 17:01 | Hospitalist Progress Note ---
Date of Service August 14, 2018 Assessment & Plan (1) Intentional acetaminophen overdose: (2) Suicidal overdose: Was sent from [facility] skilled nursing after pt intentionally ingested 200 tabs of acetaminophen 500mg Pt said that he wanted to kill himself Tylenol 27 wnl on admssion Continue suicide precaution (already had 2 skilled nursing guards at bedside) Psych on board recommended to continue [place] and recommended to d/c guanfacine Received a total of 3 bags (16hr maintenance dose ) of N-acetylcysteine Continue Buspar 5mg TID Need to be on suicide watch once discharge (3) Abnormal LFTs (liver function tests): Ingested 200 tabs of tylenol Liver enzymes on admission AST 190 and ALT 195->4148 Liver enzymes has been trending high AST 190->276->442->938, then ALT 195->285-> 488->1139->6311 Received loading dose of N-Acetylcysteine, then 4hr maintenance dose, then 3 bags of N-Acetylcysteine (16 hr maintenance dose) Liver enzymes trending down AST from 4148 to 386 and ALT from 6311 to 2989 Poison controlled recommended no additional bag of N-acetylcysteine since liver enzymes are trending down Continue monitor LFTs (4) Nausea & vomiting: Zofran as needed, monitor electrolytes Tolerated diet Resolved (5) Schizoaffective disorder, bipolar type: Suicide [place] level low Psych recommended to d/c guanfacine on discharge Continue [place] Continue Buspar 5mg TID Need to be on suicide watch once discharge (6) Diabetes mellitus, type II: Last a1c of 6.4 earlier this month Not on any oral medications Continue monitor BS DVT Ppx: Teds Code status: FULL PCP: RADHA [facility] Dispo: Will transfer to medical Possible discharge tomorrow Subjective Pt was seen and examined Lying in bed with no distress with 2 guards at bedside Pt said that he feels fine Denies any chest pain, palpitation, dizziness, N/V, SOB and abdominal pain Physical Exam Physical Exam: General- No acute distress Head- atraumatic Eyes- PERRL, EOMI, ENT- oropharynx clear Neck- supple, no JVD Lungs- clear to auscultation Heart- regular rhythm; no murmur Abdomen- normal bowel sounds, soft, nontender Extremities- no calf tenderness Neuro- alert, oriented x 3; PERRL, EOMI; no facial palsy; no dysarthria Skin- warm & dry Results & Data Vital Signs (Past 12 Hours) Vital Signs Temp Pulse Pulse Resp BP Pulse Ox 08/14/18 15:12 36.9 C 83 18 129/83 95 08/14/18 11:01 37.5 C 95 H 25 H 116/60 93 08/14/18 07:07 37.2 C 83 28 H 119/75 95 (1) Nausea & vomiting Vomiting Intractability: unspecified Vomiting type: unspecified Qualified Code(s): R11.2 - Nausea with vomiting, unspecified
[2018-08-15 06:55] LABS: Albumin Level 2.8 gm/dl (3.4-5.0); BUN Creatinine Ratio 8.8 (10-20); Calcium 8.3 mg/dl (8.5-10.1); Creatinine Clr Calc Pharmacy 161.2 ml/min; Est GFR (African American) 144.8; Est GFR (Non-African American) 124.9; Potassium 3.5 mmol/L (3.5-5.1)
[2018-08-15 07:03] LABS: Albumin Globulin Ratio 0.9 (0.9-2); Bilirubin,Total 0.8 mg/dl (0.2-1); Globulin 3.2 gm/dl (2.5-4.0)
[2018-08-15] MEDS: LITHIUM CARBONATE 300 MG TAB PO SCH (07:54)
--- NOTE | 2018-08-15 14:50 | Hospitalist Progress Note ---
Date of Service August 15, 2018 Assessment & Plan (1) Intentional acetaminophen overdose: (2) Suicidal overdose: Was sent from [facility] after pt intentionally ingested 200 tabs of acetaminophen 500mg Pt said that he wanted to kill himself Tylenol 27 (wnl) on admssion Continue suicide precaution (already had 2 halfway guards at bedside) Psych on board recommended to continue [place] and recommended to d/c guanfacine Received N-acetylcysteine loading dose, then 4hr maintenance dose then 3 bags (16hr maintenance dose ) of N-acetylcysteine Buspar 5mg TID started by psych Case discussed with psych and defer to the psych team at the [facility] for assisted management Need to be on suicide watch once discharge to [facility] (3) Abnormal LFTs (liver function tests): Ingested 200 tabs of tylenol Liver enzymes on admission AST 190 and ALT 195->4148 Liver enzymes has been trending high AST 190->276->442->938, then ALT 195->285-> 488->1139->6311 Received loading dose of N-Acetylcysteine, then 4hr maintenance dose, then 3 bags of N-Acetylcysteine (16 hr maintenance dose) Liver enzymes continue trending down AST from 4148 to 386--> 118 and ALT from 6311 to 2989-->2002 Poison controlled recommended no additional bag of N-acetylcysteine since liver enzymes are trending down Check Liver enzymes in 3 to 5 days, then weekly until stable Avoid any hepatotoxic agents (4) Nausea & vomiting: Zofran as needed, monitor electrolytes Tolerated diet Resolved (5) Schizoaffective disorder, bipolar type: Suicide [place] level low Psych recommended to d/c guanfacine on discharge Continue [place] and Invega Continue Buspar 5mg TID Need to be on suicide watch once discharge (6) Diabetes mellitus, type II: Last a1c of 6.4 earlier this month Not on any oral medications Continue monitor BS DVT Ppx: Teds Code status: FULL PCP: RADHA [facility] Dispo: Case discussed with Yony SIERRA at the [facility] Follow up with psych Monitor Liver enzymes Subjective Pt was seen and examined Lying in bed with no distress with guards at bedside Pt said that he feels fine He denies any abdominal pain, dizziness, palpitation and SOB Physical Exam Physical Exam: General- No acute distress Head- atraumatic Eyes- PERRL, EOMI, ENT- oropharynx clear Neck- supple, no JVD Lungs- clear to auscultation Heart- regular rhythm; no murmur Abdomen- normal bowel sounds, soft, nontender Extremities- no calf tenderness Neuro- alert, oriented x 3; PERRL, EOMI; no facial palsy; no dysarthria Skin- warm & dry Results & Data Vital Signs (Past 12 Hours) Vital Signs Temp Pulse Resp BP Pulse Ox 08/15/18 07:32 36.9 C 77 16 118/72 97 (1) Nausea & vomiting Vomiting Intractability: unspecified Vomiting type: unspecified Qualified Code(s): R11.2 - Nausea with vomiting, unspecified
--- NOTE | 2018-08-15 15:08 | Discharge Summary ---
Date of Service August 15, 2018 Admission HPI Per Admitting Provider This is a 43-year-old male with a PMH of schizoaffective disorder bipolar type, borderline personality disorder, hyperlipidemia and DM II who presented to the [facility] ER on 08/11/18 approximately 17hours after an intentional overdose with Tylenol the evening evening of 08/10/18 at 2030. Patient reports to this provider that he stockpiled acetominophen over 3 weeks purchased at the [employer] [facility]. He reportedly took 2 bottles of Tylenol (approximately 200 pills), mixed them with water and ingested them. He stated it was an intentional overdose with intention to . He reports he has been feeling depressed for se veral months. Specifically he reports today that he has been in alf for over a decade and has nearly another decade before he can go up for parole, "and I will be denied anyway....they won't give it to me....and I am locked in there and there is so much going on in the world and I can't do anything to even help." He reports low mood, poor interest, poor appetite, feeling hopeless, helpless and worthless. He notes he has had the suicidal ideations for many weeks. He reports he has longstanding poor concentration (even as far back as elementary school) "they just left me alone in school because they did not know what to do with me...I passed, never did homework, but did take the tests" Noted he completed HS, "I never would have made it in college." He reports in the day he feels too restless and poor focus to watch TV or read more than a few pages. He mainly passes his time by listening to music. He states he was recently placed on guanfacine "maybe in April" and asks if that can worsen depression. He was noted to say to the nursing staff yesterday, "I just don't want to live." Today when asked about how he feels that he is still alive he states, "well if I live I am not going to try to kill myself again because I can never seem to get it right, and God must not want me ." He is presently uncertain of the prognosis for his liver. He does not say he actively wishes to and engages in discussion about options for treatment saying "well if I am going to be alive we should try something." He reports h/o "schizophrenia the positive type and bipolar the second type." He describes a history of thought confusion "but not the hallucinations" denying AVH, or delusions. He reports he has been paranoid in the past, but denies IOR, TI/TB in the past. When specifically asked he beleives that he has been unable to function because of psychotic symptoms such as limited self care "I stop showering and eating and taking care of myself and then can't be around others ." He is uncertain if he has had catatonia even when asked about symptoms in layman's terms. He states that he receives Invega Sustenna injections and just had it 1-2 days prior to medical admission, "It helps my symptoms" he deniesf eeling restless or stiff, denies side effects. He also feels his lithium is helpful and again denies side effects He does report of history of "crazy manias....dancing on a table naked, talking, feeling great, yes, on top of the world, more energy, poor sleep" with indiscretions sexually, and socially getting into altercations at times. He notes "then you crash hard and wake up on the pavement" with severe post-manic depressive phases. He reports last elevation was a few years ago when he was tried on latuda, he was also on celexa and so he was taken off those meds. At sometime he was on abilify and states "that gave me diabetes." He reports he is an anxious person, "always have been....I worry." He reports feeling keyed up and on edge and lately ruminating anxiously over being in alf, and the state of the world. He states he does not like the klonopin "I feel worse on it....but maybe I should ask to be put back on it." he notes he has been on many antidepressants before but "they are all worried I'll get manic" He notes he felt the prior use of celexa helped his anxiety. He has been on other SSRIs in the past but does not have a good recollection about them. The medical team called [facility] to clarify medication reconciliation, and patient is currently just on 3 meds: [place] 600mg BID, Guanfacine 2mg daily and Invega Sustenna 234 Q4 weeks (last taken on 08/09/18). Patient's liver enzymes continue to rise despite ongoing NAC and supportive care. IM team is consulting with poison control for ongoing assistance/guidance in treatment. Admission Exam Per Admitting Provider General Appearance: WD/WN, no apparent distress, flattened affect, bilious emesis in bag beside patient Head: normocephalic, atraumatic Eyes: normal inspection, PERRL, EOMI ENT: hearing grossly normal, pharynx normal (moist mucous membranes) Neck: supple, no JVD, no adenopathy Respiratory/Chest: lungs clear to auscultation. No wheezes, rales or rhonci. No respiratory distress or accessory muscle use Cardiovascular: regular rate, rhythm, no murmur, normal peripheral pulses Abdomen/GI: normal bowel sounds, soft, non-tender to palpation Extremities/Musculoskelatal: normal inspection, no calf tenderness, normal capillary refill, no pedal edema Neurologic/Psych: alert, depressed mood/ flat affect, oriented x 3 Skin: normal color, warm/dry Principal Diagnosis Intentional acetaminophen overdose: Suicidal overdose: Transaminitis: Schizoaffective disorder, bipolar type: Discharge Exam General- No acute distress Head- atraumatic Eyes- PERRL, EOMI, ENT- oropharynx clear Neck- supple, no JVD Lungs- clear to auscultation Heart- regular rhythm; no murmur Abdomen- normal bowel sounds, soft, nontender Extremities- no calf tenderness Neuro- alert, oriented x 3; PERRL, EOMI; no facial palsy; no dysarthria Skin- warm & dry Discharge Data Allergies Allergy/AdvReac Type Severity Reaction Status Date / Time No Known Allergies Allergy Unverified 08/11/18 15:57 Consultations 08/11/18 15:03 ED Decision to Admit Stat 08/11/18 17:32 Consult Case Management - Discharge Planning Routine 08/12/18 12:46 Consult Psychiatry Routine Ordered Studies XR chest 1V portable CLINICAL HISTORY: OD dyspnea COMPARISON STUDY: 05/31/2015 FINDINGS: The bones soft tissues and hemidiaphragms are normal. The cardiomediastinal silhouette is normal. The lungs are clear. The pulmonary vasculature is normal. IMPRESSION: Negative chest. The above report was generated using voice recognition software. It may contain grammatical, syntax or spelling errors. Electronically signed by: Johnathan Earl M.D. 08/11/2018 2:25 PM Dictated: 08/11/181424 Transcribed: 08/11/181424 Hospital Course (1) Intentional acetaminophen overdose: (2) Suicidal overdose: Was sent from [facility] after pt intentionally ingested 200 tabs of acetaminophen 500mg Pt said that he wanted to kill himself Tylenol 27 (wnl) on admssion Continue suicide precaution (already had 2 alf guards at bedside) Psych on board recommended to continue [place] and recommended to d/c guanfacine Received N-acetylcysteine loading dose, then 4hr maintenance dose then 3 bags (16hr maintenance dose ) of N-acetylcysteine Buspar 5mg TID started by psych Case discussed with psych and defer to the psych team at the [facility] for correction management Need to be on suicide watch once discharge to [facility] (3) Abnormal LFTs (liver function tests): Ingested 200 tabs of tylenol Liver enzymes on admission AST 190 and ALT 195->4148 Liver enzymes has been trending high AST 190->276->442->938, then ALT 195->285-> 488->1139->6311 Received loading dose of N-Acetylcysteine, then 4hr maintenance dose, then 3 bags of N-Acetylcysteine (16 hr maintenance dose) Liver enzymes continue trending down AST from 4148 to 386--> 118 and ALT from 6311 to 2989-->2002 Poison controlled recommended no additional bag of N-acetylcysteine since liver enzymes are trending down Check Liver enzymes in 3 to 5 days, then weekly until stable Avoid any hepatotoxic agents (4) Nausea & vomiting: Zofran as needed, monitor electrolytes Tolerated diet Resolved (5) Schizoaffective disorder, bipolar type: Suicide [place] level low Psych recommended to d/c guanfacine on discharge Continue [place] and Invega Continue Buspar 5mg TID Need to be on suicide watch once discharge (6) Diabetes mellitus, type II: Last a1c of 6.4 earlier this month Not on any oral medications Continue monitor BS Check Hba1c in 3 to 6 months DVT Ppx: Teds Code status: FULL PCP: RADHA [facility] Dispo: Case discussed with Yony SIERRA at the [facility] Follow up with psych Monitor Liver enzymes Total Time Total Time Spent Total Time Spent (In Minutes): 35 minutes Total Time Includes: Examination of the Patient, Discharge Planning, Medication Reconciliation, Communication With Other Providers and Other Discharge Plan Discharge Items Patient Disposition: Correctional Facility Reason For Visit: TYLENOL OVERDOSE Discharge Diagnosis: Intentional acetaminophen overdose: Suicidal overdose: Transaminitis: Schizoaffective disorder, bipolar type: Discharge Goals: Decrease discomfort, Improve disease control, Increase independence and Improve nutritional status Activity: Resume your previous activity Activity Comment: As tolerated Non-emergency contact: Primary Care Provider and Psychiatrist Call non-emergency contact if: you have any medication questions Follow-up/Referrals: Janeth GARCIA [Primary Care Provider] - Diet: Carb Consistent or DM2 Addtl Provider Instructions: Discharge to [facility] Follow up with primary care physician at [facility] Follow up with psych Please place inmate on suicide watch Check liver enzymes in 3 to 5 days, then weeklyx2, then monthly until LFTs stable. Avoid hepatotoxic agents Prescriptions: New buspirone 5 mg Tablet 5 mg PO TID 30 Days Qty: 90 RF: 0 Continued lithium carbonate 600 mg Capsule 600 mg PO BID RF: 0 Invega Sustenna 234 mg/1.5 mL Syringe 234 mg IM Q4WK RF: 0 Discontinued guanfacine 2 mg Tablet 2 mg PO HS RF: 0 Stand-Alone Forms: [facility]charge Orders: Discharge Order (Routine); Ordered 08/15/18 Ordered By: Mary Harris Admission Data Admit Date/Time: 08/11/18 16:31 Attending Provider: Mary Harris Admit Provider: Lizet Hoover Primary Care Provider: Janeth GARCIA Other Providers: Lizet Hoover ; Miriam Cevallos Service: Medical
== END 2018-08-15 17:54 | DRG 918 ==
LOC: ED 13:32 → 2E 16:31 → 2N 08-14 17:17